=== PATIENT | female | born 1970 | race Caucasian/White ===

== ENCOUNTER 2018-11-03 15:43 | Emergency (ER) | payer BC ==
--- NOTE | 2018-11-03 16:00 | ER Report ---
History and Physical Time Seen By MD: 16:00 Hx. of Stated Complaint: LEFT KNEE INJURY WHILE SKIING HPI/ROS CHIEF COMPLAINT: Left knee pain HISTORY OF PRESENT ILLNESS: This is a 48-year-old female presents emergency department for a left knee injury. Patient states that she was skiing today, the back of her ski got caught up in some pallor, she fell forward and then tumbled, as she fell forward she felt a popping sensation in her left knee and left lower extremity, her bindings did not release. She's been able to bear weight on the left leg. No previous injuries. Did not hit her head, no loss of consciousness. REVIEW OF SYSTEMS: Respiratory: No cough, no dyspnea. Cardiovascular: No chest pain, no palpitations. Gastrointestinal: No vomiting, no abdominal pain. Musculoskeletal: As above. Allergies: Coded Allergies: No Known Drug Allergies (Unverified , 11/03/18) Home Meds Active Scripts Ondansetron Hcl (ZOFRAN) 4 Mg Tablet, 4 MG PO Q4-6H PRN for prn, #20 TAB Prov:BASIM GARG [employer]-BC 11/03/18 Hydrocodone Bit/Acetaminophen (HYDROCODON-ACETAMINOPHEN 5-325) 1 Each Tablet, 1 EACH PO Q4-6H PRN for PAIN, #12 TAB Prov:BASIM GARG [facility] 11/03/18 Past Medical/Surgical History The patient has a past medical and surgical history of . Reviewed Nurses Notes: Yes Constitutional Vital Sign - Last 24 Hours 11/03/18 11/03/18 11/03/18 11/03/18 15:53 16:00 16:30 16:45 Temp 98.2 Pulse 112 106 93 96 Resp 16 B/P (MAP) 150/67 138/73 (94) 139/86 (103) Pulse Ox 95 96 95 96 O2 Delivery Room Air 11/03/18 11/03/18 11/03/18 11/03/18 17:00 17:30 17:45 18:00 Pulse 98 92 94 99 B/P (MAP) 129/90 (103) 141/92 (108) 142/90 (107) Pulse Ox 91 94 92 92 Physical Exam General Appearance: The patient is alert, has no immediate need for airway protection and no current signs of toxicity. Eyes: Pupils equal and round no injection. Respiratory: Chest is non tender, lungs are clear to auscultation. Cardiac: regular rate and rhythm. Gastrointestinal: Abdomen is soft and non tender, no masses, bowel sounds normal. Musculoskeletal: Neck: Neck is supple and non tender. Extremities positive left straight leg raise off the gurney, valgus and varus of the left knee without significant knee pain. No femur or hip pain. Proximal tibial and medial tibial pain. No obvious deformities, swelling noted to the left knee. No crepitus. Skin: No rashes or lesions. DIFFERENTIAL DIAGNOSIS: After history and physical exam differential diagnosis was considered for contusion, abrasion, subluxation, fracture, anterior cruciate ligament tear, meniscus tear. Medical Decision Making EKG/Imaging Imaging Location: [facility] Patient: Fran Velasco : 1970 Visit/Account:[id number] Date of Sevice: 11/03/2018 Examination: KNEE 4 VIEW LEFT, ANKLE 3 VIEW MIN LEFT, TIBIA FIBULA LEFT Comparison: None. History: Skiing accident. Left lower extremity pain. Findings: 4 views left knee: Small joint effusion likely containing a fluid fluid level is concerning for a lipohemarthrosis. A longitudinal lucency in the proximal tibia is suggestive of a nondisplaced fracture potentially extending into the intercondylar notch or lateral tibial plateau. No definite articular surface ir regularity is identified. Femorotibial and patellofemoral alignment is within normal limits. 2 views left tibia-fibula: No other potential tibia or fibula fracture is identified. Soft tissues are unremarkable. 3 views left ankle: No fracture. Alignment and joint spaces are normal. Small posterior calcaneal spur. No soft tissue swelling. IMPRESSION: 1. Proximal left tibia nondisplaced intra-articular fracture. 2. No left ankle fracture or malalignment. Report Dictated By: Patrick Munoz MD at 11/03/2018 5:15 PM Report E-Signed By: Patrick Munoz MD at 11/03/2018 5:20 PM WSN:[id number] Location: [facility] Patient: Fran Velasco : 1970 Visit/Account:[id number] Date of Sevice: 11/03/2018 Examination: KNEE 4 VIEW LEFT, ANKLE 3 VIEW MIN LEFT, TIBIA FIBULA LEFT Comparison: None. History: Skiing accident. Left lower extremity pain. Findings: 4 views left knee: Small joint effusion likely containing a fluid fluid level is concerning for a lipohemarthrosis. A longitudinal lucency in the proximal tibia is suggestive of a nondisplaced fracture potentially extending into the intercondylar notch or lateral tibial plateau. No definite articular surface irregularity is identified. Femorotibial and patellofemoral alignment is within normal limits. 2 views left tibia-fibula: No other potential tibia or fibula fracture is identified. Soft tissues are unremarkable. 3 views left ankle: No fracture. Alignment and joint spaces are normal. Small posterior calcaneal spur. No soft tissue swelling. IMPRESSION: 1. Proximal left tibia nondisplaced intra-articular fracture. 2. No left ankle fracture or malalignment. Report Dictated By: Patrick Munoz MD at 11/03/2018 5:15 PM Report E-Signed By: Patrick Munoz MD at 11/03/2018 5:20 PM WSN:[id number] Location: [facility] Patient: Fran Velasco : 1970 Visit/Account:[id number] Date of : 11/03/2018 Examination: CT KNEE W/O LT Comparison: Radiographs same day. History: Fall today. Left knee pain. Procedure: Multiplanar noncontrast CT left knee. One of the following dose optimization techniques was utilized in the performance of this exam: Automated exposure control; adjustment of the mA and/or kV according to the patient's size; or use of an iterative reconstruction technique. Specific details can be referenced in the facility's radiology CT exam operational policy. Findings: Left tibia proximal diametaphysis mildly comminuted longitudinal fracture. The fracture extends into the intercondylar notch and involves both tibial spines. Mild fracture fragment displacement along the tibial spines as well as the posteromedial margin of the lateral tibial plateau. The fracture als o extends into the anteromedial margin of the lateral tibial plateau with minimal associated displacement. The majority of the weightbearing lateral tibial plateau is intact. The medial tibial plateau is intact. The visualized proximal fibula and distal femur as well as the patella are intact. Femorotibial and patellofemoral alignment is maintained. Lipohemarthrosis. No definite soft tissue internal arrangement is identified although ligamentous and tendinous injury would be better characterized by MRI as clinically indicated. IMPRESSION: 1. Left tibia proximal diametaphysis minimally displaced intra-articular fracture involving the intercondylar notch as well as the posteromedial and anteromedial margins of the lateral tibial plateau as described above. 2. Lipohemarthrosis. Report Dictated By: Patrick Munoz MD at 11/03/2018 5:30 PM Report E-Signed By: Patrick Munoz MD at 11/03/2018 5:38 PM WSN:[id number] ED Course/Re-evaluation ED Course The patient was admitted to room. A history of physical were obtained. Differential diagnoses were considered. Patient was given 4 mg ODT Zofran, 1 hydrocodone. X-ray of the left knee, tib-fib and ankle were obtained. Left knee showing a tibial fracture, I was concerned that there was involvement of the articular surface, I did obtain a CT showing Left tibia proximal diametaphysis minimally displaced intra-articular fracture involving the intercondylar notch as well as the posteromedial and anteromedial margins. I did review the results with the patient. As they are from [place] they will follow up with an orthopedist of their choice will return. She was placed in an Rosendo wrap, a knee immobilizer, given crutches, given instructions on how to use the medical equipment. She is also given a prescription for hydrocodone and Zofran. We also sent patient home with a CD of the images. They will contact orthopedist in [place] tomorrow try to schedule a follow-up appointment for Wednesday or Wednesday. There are no other questions or concerns at this time and were discharged home. Decision to Disposition Date: Nov 03, 2018 Decision to Disposition Time: 18:04 Depart Departure Latest Vital Signs Vital Signs Date Time Temp Pulse Resp B/P (MAP) Pulse Ox O2 Delivery O2 Flow Rate FiO2 11/03/18 18:00 99 142/90 (107) 92 11/03/18 15:53 98.2 16 Room Air Impression: Primary Impression: Fracture of right tibial plateau Condition: Improved Disposition: HOME OR SELF-CARE New Scripts Ondansetron Hcl (ZOFRAN) 4 Mg Tablet 4 MG PO Q4-6H PRN for prn, #20 TAB Prov: MERCEDNAVJOTKEYBASIM L [employer]- 11/03/18 Hydrocodone Bit/Acetaminophen (HYDROCODON-ACETAMINOPHEN 5-325) 1 Each Tablet 1 EACH PO Q4-6H PRN for PAIN, #12 TAB Prov: BASIM AGRG Dimitris [employer]- 11/03/18 Patient Instructions: Leg Fracture (ED) Additional Instructions: You have a minimally displaced tibial plateau fracture. This will likely require some sort of surgical intervention to repair. Please contact an orthopedist tomorrow for follow-up in [place]. I would like you to follow-up by Wednesday or Wednesday. Use ibuprofen or Tylenol as needed for pain. For severe pain as the hydrocodone as prescribed. This can cause constipation so increase her fluid intake and had MiraLAX as needed. Keep the splint on until he follow-up with orthopedics, he may remove the splint to bathe and change clothing. Use the crutches when ambulating, this is a non-weight bearing injury. Get as much rest as possible. Drink plenty of water. Return to the ER for any other concerns or worsening symptoms. Problem Qualifiers Primary Impression: Fracture of right tibial plateau Encounter type: initial encounter Fracture type: closed Qualified Codes: S82.141A - Displaced bicondylar fracture of right tibia, initial encounter for closed fracture BRITANYBASIM Shanks [employer]-BC Nov 03, 2018 16:00
[2018-11-03] MEDS ORDERED: APAP/HYDROCODONE 325/10 TAB PO ONE (16:15)
[2018-11-03] MEDS ORDERED: ONDANSETRON 4 MG ODT TABDP SL ONE (16:15)
--- NOTE | 2018-11-03 17:25 | RADIOLOGY IMAGING REPORT ---
FACILITY: [facility] - [place] PATIENT NAME: Fran Velasco : 1970 MR: [id number] V: [id number] EXAM DATE: ORDERING PHYSICIAN: BASIM GARG TECHNOLOGIST: [place] [facility] [place]: Fran Velasco : 1970 Visit/Account:[id number] Date of Sevice: 11/03/2018 Examination: KNEE 4 VIEW LEFT, ANKLE 3 VIEW MIN LEFT, TIBIA FIBULA LEFT Comparison: None. History: Skiing accident. Left lower extremity pain. Findings: 4 views left knee: Small joint effusion likely containing a fluid fluid level is concerning for a lip ohemarthrosis. A longitudinal lucency in the proximal tibia is suggestive of a nondisplaced fracture potentially extending into the intercondylar notch or lateral tibial plateau. No definite articular s urface irregularity is identified. Femorotibial and patellofemoral alignment is within normal limits. 2 views left tibia-fibula: No other potential tibia or fibula fracture is identified. Soft tissues ar e unremarkable. 3 views left ankle: No fracture. Alignment and joint spaces are normal. Small posterior calcaneal spu r. No soft tissue swelling. IMPRESSION: 1. Proximal left tibia nondisplaced intra-articular fracture. 2. No left ankle fracture or malalignment. Report Dictated By: Patrick Munoz MD at 11/03/2018 5:15 PM Report E-Signed By: Patrick Munoz MD at 11/03/2018 5:20 PM WSN:[id number]
--- NOTE | 2018-11-03 17:26 | RADIOLOGY IMAGING REPORT ---
FACILITY: [facility] - [place] PATIENT NAME: Fran Velasco : 1970 MR: [id number] V: [id number] EXAM DATE: ORDERING PHYSICIAN: BASIM GARG TECHNOLOGIST: [place] [facility] [place] Fran Velasco : 1970 Visit/Account:[id number] Date of Sevice: 11/03/2018 Examination: KNEE 4 VIEW LEFT, ANKLE 3 VIEW MIN LEFT, TIBIA FIBULA LEFT Comparison: None. History: Skiing accident. Left lower extremity pain. Findings: 4 views left knee: Small joint effusion likely containing a fluid fluid level is concerning for a lip ohemarthrosis. A longitudinal lucency in the proximal tibia is suggestive of a nondisplaced fracture potentially extending into the intercondylar notch or lateral tibial plateau. No definite articular s urface irregularity is identified. Femorotibial and patellofemoral alignment is within normal limits. 2 views left tibia-fibula: No other potential tibia or fibula fracture is identified. Soft tissues ar e unremarkable. 3 views left ankle: No fracture. Alignment and joint spaces are normal. Small posterior calcaneal spu r. No soft tissue swelling. IMPRESSION: 1. Proximal left tibia nondisplaced intra-articular fracture. 2. No left ankle fracture or malalignment. Report Dictated By: Patrick Muonz MD at 11/03/2018 5:15 PM Report E-Signed By: Patrick Munoz MD at 11/03/2018 5:20 PM WSN:[id number]
--- NOTE | 2018-11-03 17:27 | RADIOLOGY IMAGING REPORT ---
FACILITY: [facility] PATIENT NAME: Fran Velasco : 1970 MR: [id number] V: [id number] EXAM DATE: ORDERING PHYSICIAN: BASIM GARG TECHNOLOGIST: Location: [facility] Patient: Fran Velasco : 1970 Visit/Account:[id number] Date of Sevice: 11/03/2018 Examination: KNEE 4 VIEW LEFT, ANKLE 3 VIEW MIN LEFT, TIBIA FIBULA LEFT Comparison: None. History: Skiing accident. Left lower extremity pain. Findings: 4 views left knee: Small joint effusion likely containing a fluid fluid level is concerning for a lip ohemarthrosis. A longitudinal lucency in the proximal tibia is suggestive of a nondisplaced fracture potentially extending into the intercondylar notch or lateral tibial plateau. No definite articular s urface irregularity is identified. Femorotibial and patellofemoral alignment is within normal limits. 2 views left tibia-fibula: No other potential tibia or fibula fracture is identified. Soft tissues ar e unremarkable. 3 views left ankle: No fracture. Alignment and joint spaces are normal. Small posterior calcaneal spu r. No soft tissue swelling. IMPRESSION: 1. Proximal left tibia nondisplaced intra-articular fracture. 2. No left ankle fracture or malalignment. Report Dictated By: Patrick Munoz MD at 11/03/2018 5:15 PM Report E-Signed By: Patrick Munoz MD at 11/03/2018 5:20 PM WSN:[id number]
--- NOTE | 2018-11-03 17:43 | RADIOLOGY IMAGING REPORT ---
FACILITY: [facility] PATIENT NAME: Fran Velasco : 1970 MR: [id number] V: [id number] EXAM DATE: ORDERING PHYSICIAN: BASIM GARG TECHNOLOGIST: Location: [facility] - [place] Patient: Fran Velasco : 1970 Visit/Account:[id number] Date of Sevice: 11/03/2018 Examination: CT KNEE W/O LT Comparison: Radiographs same day. History: Fall today. Left knee pain. Procedure: Multiplanar noncontrast CT left knee. One of the following dose optimization techniques was utilized in the performance of this exam: Autom ated exposure control; adjustment of the mA and/or kV according to the patient's size; or use of an i terative reconstruction technique. Specific details can be referenced in the facility's radiology C T exam operational policy. Findings: Left tibia proximal diametaphysis mildly comminuted longitudinal fracture. The fracture ext ends into the intercondylar notch and involves both tibial spines. Mild fracture fragment displacemen t along the tibial spines as well as the posteromedial margin of the lateral tibial plateau. The frac ture also extends into the anteromedial margin of the lateral tibial plateau with minimal associated displacement. The majority of the weightbearing lateral tibial plateau is intact. The medial tibial plateau is intact. The visualized proximal fibula and distal femur as well as the p atella are intact. Femorotibial and patellofemoral alignment is maintained. Lipohemarthrosis. No definite soft tissue internal arrangement is identified although ligamentous and tendinous injury would be better characterized by MRI as clinically indicated. IMPRESSION: 1. Left tibia proximal diametaphysis minimally displaced intra-articular fracture involving the inter condylar notch as well as the posteromedial and anteromedial margins of the lateral tibial plateau as described above. 2. Lipohemarthrosis. Report Dictated By: Patrick Munoz MD at 11/03/2018 5:30 PM Report E-Signed By: Patrick Munoz MD at 11/03/2018 5:38 PM WSN:[id number]
[2018-11-03 18:00] VITALS: BP 142/90
[2018-11-03] MEDS ORDERED: HYDR-385 PO (18:05)
[2018-11-03] MEDS ORDERED: ONDA4TAB97 PO (18:05)
== END 2018-11-03 18:30 | disposition home or self-care (01) ==
LOC: ER 16:09
DX: S82.142A Displaced bicondylar fracture of left tibia, initial encounter for closed fracture (principal); W00.0XXA Fall on same level due to ice and snow, initial encounter; Y93.23 Activity, snow (alpine) (downhill) skiing, snowboarding, sledding, tobogganing and snow tubing
CPT/HCPCS: 73564; 73590; 73610; 73700; 99284; L1830; S0119